=== PATIENT | male | born 1935 | race Two or more races ===

== ENCOUNTER 2025-01-20 08:41 | Emergency (ER) | payer OTHER, MEDICAID, SELFPAY ==
[2025-01-20 08:49] VITALS: BP 152/68; PULSE 85; RESP 17; TEMP 36.8; O2SAT 95
--- NOTE | 2025-01-20 08:55 | XR_ITS ---
Examination: AP lateral chest 2 views TECHNIQUE: Sitting AP lateral chest 2 views Date and time: January 20, 2025, 0914 hours INDICATIONS: Coughing chest pain today. FINDINGS: Bibasilar pneumonia. Normal heart size The osseous structures are intact IMPRESSION: Bibasilar pneumonia
--- NOTE | 2025-01-20 08:55 | XR_ITS ---
Examination: Venous duplex lower extremity sonogram, bilateral. Date and time of exam: January 20, 2025 0930 hours Swelling in the feet this week bilateral Technique: Multiple sonographic images of the deep venous system have been obtained. B-mode/2-D grayscale imaging of vascular structures and Doppler spectral analysis (waveforms) and color performed Both legs are examined. Findings: Deep venous systems do not demonstrate abnormal echogenicity. All visualized deep veins exhibit compressibility. All visualized deep veins exhibit augmentation. Impression: Negative for deep vein thrombosis
--- NOTE | 2025-01-20 08:56 | PD.EDRME ---
Rapid Medical Screening Exam RME Arrival date/time: 01/20/25 08:41 89-year-old male with history of hypertension, CAD, hypercholesterolemia presents to the emergency department today for complaints of bilateral lower extremity swelling Chief Complaint: General Adult/Misc Complain Vital signs: Vital Signs Temperature 98.3 F 01/20/25 08:49 Pulse Rate 85 01/20/25 08:49 Respiratory Rate 17 01/20/25 08:49 Blood Pressure 152/68 H 01/20/25 08:49 Pulse Oximetry (%) 95 01/20/25 08:49 Oxygen Delivery Method Room Air 01/20/25 08:49
[2025-01-20 09:30] LABS: Basophils # (Auto) 0.1 Thou/mm3 (0.0-0.2); Basophils % (Auto) 1 % (0-2.5); Eosinophils # (Auto) 0.3 Thou/mm3 (0.0-0.5); Eosinophils % (Auto) 4 % (0-10); Hematocrit 38.2 % (41.0-53.0); Hemoglobin 12.9 g/dL (13.5-16.0); Immature Granulocytes Auto 0.13 Thou/mm3 (0.00-0.00); Lymphocytes # (Auto) 1.5 Thou/mm3 (1.0-4.8); Lymphocytes % (Auto) 19 % (10-50); Mean Corpuscular HGB Conc 33.8 g/dl (31.0-37.0); Mean Corpuscular Hemoglobin 31.5 pg (25.0-35.0); Mean Corpuscular Volume 93 fL (80-100); Monocytes # (Auto) 0.5 Thou/mm3 (0.0-0.8); Monocytes % (Auto) 7 % (0-12); Neutrophils # (Auto) 5.4 Thou/mm3 (1.8-7.7); Neutrophils % (Auto) 67 % (37-80); Nucleated Red Blood Cell # 0.00 Thou/mm3 (0.00-0.00); Nucleated Red Blood Cell % 0 /100 WBC (0); Platelet Count 170 Thou/mm3 (140-440); RDW Standard Deviation 47.6 fL (35.1-43.9); Red Blood Count 4.10 Miln/mm3 (4.50-5.90); White Blood Count 8.0 Thou/mm3 (3.8-10.6)
[2025-01-20 09:38] LABS: INR 1.0 (0.9-1.3); Partial Thromboplastin Time 21.4 Seconds (22.0-36.0); Prothrombin Time 10.6 Seconds (9.0-12.2)
[2025-01-20 09:42] LABS: Alanine Aminotransferase 12 U/L (10-49); Albumin, Serum 4.6 gm/dL (3.4-4.8); Albumin/Globulin Ratio 1.4 (1.2-2.2); Alkaline Phosphatase 91 U/L (46-116); Anion Gap 11 (7-16); Aspartate Amino Transferase 21 U/L (0-34); BUN/Creatinine Ratio 7 Ratio (12-20); Bilirubin,Total 0.5 mg/dL (0.3-1.2); Blood Urea Nitrogen 9 mg/dL (9-23); Calcium 9.7 mg/dL (8.3-10.6); Calcium (Corrected) 9.7 mg/dL (8.5-10.1); Carbon Dioxide 23.3 mMol/L (20.0-31.0); Chloride 101 mMol/L (98-107); Creatinine (Component) 1.3 mg/dL (0.6-1.3); Globulin 3.4 gm/dL (2.3-3.5); Glucose 207 mg/dL (74-106); Magnesium 1.8 mg/dL (1.6-2.6); Osmolality,Calculated 274 (275-295); Potassium 4.3 mMol/L (3.4-5.1); Sodium 135 mMol/L (136-145); Total Protein 8.0 gm/dL (5.7-8.2); eGFR 53 See Note
[2025-01-20 10:00] LABS: B-Type Natriuretic Peptide 24 pg/mL (0-100)
--- NOTE | 2025-01-20 11:26 | PD.EDADULT ---
ED General RME/HPI General Chief complaint: General Adult/Misc Complain Stated complaint: BILAT LEG SWELLING, FLUID IN ABD Time Seen by Provider: 01/20/25 09:48 Arrival date/time: 01/20/25 08:41 RME / HPI RME / HPI narrative: 89-year-old male with history of hypertension, CAD, hypercholesterolemia presents to the emergency department today for complaints of bilateral lower extremity swelling. This been ongoing for several weeks. Patient also complaining of cough, for the last few days, denies any fever denies any shortness of breath denies any other complaints no medication was taken prior to ER visit. Related Data Home Medications ?Medication ?Instructions ?Recorded ?Confirmed atorvastatin 20 mg tablet (Lipitor) 40 mg PO HS #0 tabs 07/04/14 08/01/23 carvedilol 6.25 mg tablet (Coreg) 6.25 mg PO BID #0 tabs 07/04/14 08/01/23 clopidogrel 75 mg tablet (Plavix) 75 mg PO QDAY #0 tabs 07/04/14 08/01/23 amlodipine 10 mg tablet (Norvasc) 10 mg PO QDAY #0 tabs 05/31/16 08/01/23 aspirin 81 mg tablet,delayed 81 mg PO QPM 07/03/19 08/01/23 release losartan 50 mg tablet 50 mg PO QAM 08/01/23 08/01/23 metformin 750 mg tablet,extended 750 mg PO QPM 08/01/23 08/01/23 release 24 hr Previous Rx's ?Medication ?Instructions ?Recorded amoxicillin 875 mg-potassium 1 tab PO BID #14 tabs 01/20/25 clavulanate 125 mg tablet furosemide 20 mg tablet (Lasix) 20 mg PO QAM #14 tabs 01/20/25 potassium chloride 20 mEq oral 20 meq PO QDAY #14 ea 01/20/25 packet Allergies Allergy/AdvReac Type Severity Reaction Status Date / Time No Known Allergies Allergy Verified 08/01/23 14:58 Review of Systems Review of Systems Narrative Review of Systems: Review of system reviewed and within normal limits except mentioned in HPI ED Exam Narrative Physical exam: VITAL SIGNS: Reviewed. GENERAL APPEARANCE: Alert and interactive, follows commands, no acute distress, HEAD AND FACE: Non-traumatic. ENT: PERRL, pink conjunctivitis, eyelid no trauma, Mucous membrane moist. NECK: Supple, nontender, no nuchal rigidity. CHEST: No tenderness, no crepitus, no paradoxical movement, no retractions. LUNGS: Clear, well ventilated, symmetric, no rales, no wheezing, no ronchi, no stridor, good breath sounds bilaterally. HEART: Regular rate, regular rhythm, no murmur, no gallops. ABDOMEN: Soft, positive bowel sounds, nondistended, no guarding, nontender, no rebound, no masses, RECTAL: Deferred. GENITAL: Deferred. NEUROLOGICAL: Gross motor function intact sensory function intact, Appropriate for age. MUSCULOSKELETAL: low back nontender, full range of motion. EXTREMITIES:+ Bilateral lower extremity swelling, +1, no redness noted nontender, full range of motion. SKIN: Color pink, dry, no rash, no lacerations, no abrasions, no contusions. LYMPHATICS: Deferred. Course Quality Measures none Orders Category Date Time Status US venous doppler LE BI Stat Exams 01/20/25 08:55 Completed XR chest 2V Stat Exams 01/20/25 08:55 Completed B-Type Natriuretic Peptide Stat Lab 01/20/25 09:11 Completed CBC Stat Lab 01/20/25 09:11 Completed Comprehensive Metabolic Panel Stat Lab 01/20/25 09:11 Completed Magnesium Stat Lab 01/20/25 09:11 Completed Partial Thromboplastin Time Stat Lab 01/20/25 09:11 Completed Prothrombin Time with INR Stat Lab 01/20/25 09:11 Completed Vital Signs Vital signs: Vital Signs Temperature 98.3 F 01/20/25 08:49 Pulse Rate 85 01/20/25 08:49 Respiratory Rate 17 01/20/25 08:49 Blood Pressure 152/68 H 01/20/25 08:49 Pulse Oximetry (%) 95 01/20/25 08:49 Oxygen Delivery Method Room Air 01/20/25 08:49 Discharge Plan Plan Patient Disposition: HOME (Self Care) Discharge Disposition comment: stable Prescriptions/Referrals Prescriptions/Med Rec: New furosemide [Lasix] 20 mg tablet 20 mg PO QAM Qty: 14 0RF potassium chloride 20 mEq packet 20 meq PO QDAY Qty: 14 0RF amoxicillin-pot clavulanate 875-125 mg tablet 1 tab PO BID Qty: 14 0RF No Action carvedilol [Coreg] 6.25 MG tablet 6.25 mg PO BID Qty: 0 atorvastatin [Lipitor] 20 MG tablet 40 mg PO HS Qty: 0 clopidogrel [Plavix] 75 MG tablet 75 mg PO QDAY Qty: 0 amlodipine [Norvasc] 10 MG tablet 10 mg PO QDAY Qty: 0 aspirin 81 mg Tablet,Delayed Release (Dr/Ec) 81 mg PO QPM losartan 50 mg tablet 50 mg PO QAM Patient Comments: SALLY JUAREZA TODOS LOS D FOR 60 DAYS metformin 750 mg tablet extended release 24 hr 750 mg PO QPM Referrals: Jillian Galo MD [Primary Care Provider] - In 1 week Problem List Clinical Impression: PNA (pneumonia), Leg swelling Patient/Caregiver Discharge Instructions Discharge Activity: activity as tolerated Education Materials: ED Pneumonia (Adult) Additional Instructions: Thank you for the opportunity for serving you today. You are stable for discharged . You are advised to: Follow-up with your PCP in 1 to 2 days Return to ED for worsening of symptoms Take medication as prescribed Print Language: Peruvian Stand Alone Forms: [employer] Award Info., Patient Portal Info Letter PA/MARKETING BUSINESS ANALYST Supervising Physician PA/FELICITAS Supervising Physician: Dr Ingram MDM Narrative MDM hospital course (for use when minimal MDM required): 89-year-old male with history of hypertension, CAD, hypercholesterolemia presents to the emergency department today for complaints of bilateral lower extremity swelling. This been ongoing for several weeks. Patient also complaining of cough, for the last few days, denies any fever denies any shortness of breath denies any other complaints no medication was taken prior to ER visit. Laboratory workup UNREMARKABLE no leukocytosis noted. Chest x-ray showed pneumonia bilateral. Creatinine is normal. Ultrasound bilateral lower extremities negative for DVT. Patient will be sent home on Lasix potassium and Augmentin for pneumonia. Patient is stable for discharge home satting 95% on room air patient is ambulatory Patient appears nontoxic and hemodynamically stable .Decision to discharge the patient. The patient/family was given an opportunity to ask questions and understood their discharge instructions. Discharge instructions specifically included follow up provider and time frame, current and/or new medications and possible side effects, indications for sooner follow up or return to the emergency department, and the expected course of current diagnosis. Patient reports feeling better as well and giving evidence of significant clinical improvement, I believe patient is now a candidate for discharge. Diagnosis Differential Diagnosis ED Complaint MDM: Cough, shortness of breath, congestive heart failure, pneumonia, DVT, leg s Diagnoses ruled out and/or further discussions: Leg swelling, pneumonia
== END 2025-01-20 12:22 | disposition home or self-care (01) ==
PROVIDERS: Nurse Practitioner Primary Care; Emergency Provider Family Medicine; PCP Obstetrics & Gynecology
DX: J18.9 Pneumonia, unspecified organism (principal); M79.89 Other specified soft tissue disorders
CPT/HCPCS: 36415; 71046; 80053; 83735; 83880; 85025; 85610; 85730; 93970; 99283

== ENCOUNTER 2025-03-17 14:25 | Emergency (ER) | payer OTHER, SELFPAY ==
[2025-03-17 14:26] VITALS: BMI 25.0
[2025-03-17 15:00] VITALS: BP 152/77; PULSE 89; RESP 20; TEMP 37.2; O2SAT 96
--- NOTE | 2025-03-17 15:09 | XR_ITS ---
Examination: CT brain head without contrast. 2-D sagittal coronal reconstructions Date and time of exam: March 17, 2025, 1631 hours, comparison October 04, 2023 INDICATIONS: Onset headaches and generalized body weakness today CTDI: vol (mGy): 49.2 DLP: (mGycm): 992 Technique: Multiple CT axial sections of the brain have been obtained, 5 mm slice thickness. Contrast has not been administered. 2-D sagittal, coronal reconstructions have been obtained Low dose protocols were performed. One or more of the following dose reduction techniques were used; automated exposure control, adjustment of the mA and/or KV according to patient size, use of iterative reconstruction technique. Findings: No significant ventricular enlargement. Small old infarct left basal ganglia Intra-axial or extra-axial hemorrhage density is not seen. No mass effect or midline shift Basal cisterns are not remarkable. Fourth ventricle is midline. Cranial vault intact. Impression: Negative for acute hemorrhage, mass effect or midline shift As clinically warranted, brain MRI follow-up would best assess for early acute ischemic change
--- NOTE | 2025-03-17 15:10 | EKG_ITS ---
[facility] Test Date: 2025-03-17 Pat Name: WESLEY CABRERA Department: Room: - Gender: Male Senior Core Java Developer: : [id number] Requested By: Shahab Marin Order Number: [id number] Reading MD: Shahab Marin Measurements Intervals [place] Rate: 92 P: 39 NC: 162 QRS: 255 QRSD: 156 T: 17 QT: 396 QTc: 490 Interpretive Statements SINUS RHYTHM INDETERMINATE AXIS RIGHT BUNDLE BRANCH BLOCK [120+ ms QRS DURATION, UPRIGHT V1, 40+ ms S IN I/aVL/V4/V5/V6] Compared to ECG 08/02/2023 16:23:23 Sinus tachycardia no longer present Left posterior fascicular block no longer present /store/S0/[id number].pdf
--- NOTE | 2025-03-17 15:11 | XR_ITS ---
EXAMINATION: AP chest single view TECHNIQUE: Sitting portable AP chest single view Date and time: March 17, 2025, 1528 hours, comparison 01/20/2025 INDICATIONS: Ground-level fall 6 days ago followed by chest pain shortness of breath weakness FINDINGS: Normal heart size No pneumothorax Atelectasis versus mild pneumonia at the lung bases Clavicles ribs appear intact IMPRESSION: Atelectasis versus mild pneumonia at the lung bases
--- NOTE | 2025-03-17 15:13 | PD.EDRME ---
Rapid Medical Screening Exam RME Arrival date/time: 03/17/25 14:25 Chief Complaint: Weakness Vital signs: Vital Signs Temperature 98.9 F 03/17/25 15:00 Pulse Rate 89 03/17/25 15:00 Respiratory Rate 20 03/17/25 15:00 Blood Pressure 152/77 H 03/17/25 15:00 Pulse Oximetry (%) 96 03/17/25 15:00 Oxygen Delivery Method Room Air 03/17/25 15:00 RME Narrative: 89-year-old male presents to the ER complaining of generalized weakness x 6 days. I briefly performed a screening evaluation to initiate work-up and expedite care. Complete history, physical exam, and plan of care is deferred to the provider in the main ED. Exam: Head: Normocephalic, atraumatic. Respiratory: Normal effort. No respiratory distress or accessory muscle use. Neuro: Speech normal. Skin: Warm, dry, normal color. Psych: Pleasant. Normal affect. Cooperative. Clinical Impression: Generalized weakness
[2025-03-17 16:14] LABS: Collection Type, Urine Voided; Squamous Epithelial Cell,Urine 0 /hpf (0-5)
[2025-03-17 16:21] LABS: Basophils # (Auto) 0.1 Thou/mm3 (0.0-0.2); Basophils % (Auto) 1 % (0-2.5); Eosinophils # (Auto) 0.4 Thou/mm3 (0.0-0.5); Eosinophils % (Auto) 3 % (0-10); Hematocrit 37.5 % (41.0-53.0); Hemoglobin 12.6 g/dL (13.5-16.0); Immature Granulocytes Auto 0.11 Thou/mm3 (0.00-0.00); Lymphocytes # (Auto) 1.6 Thou/mm3 (1.0-4.8); Lymphocytes % (Auto) 11 % (10-50); Mean Corpuscular HGB Conc 33.6 g/dl (31.0-37.0); Mean Corpuscular Hemoglobin 31.6 pg (25.0-35.0); Mean Corpuscular Volume 94 fL (80-100); Monocytes # (Auto) 1.3 Thou/mm3 (0.0-0.8); Monocytes % (Auto) 9 % (0-12); Neutrophils # (Auto) 11.0 Thou/mm3 (1.8-7.7); Neutrophils % (Auto) 76 % (37-80); Nucleated Red Blood Cell # 0.00 Thou/mm3 (0.00-0.00); Nucleated Red Blood Cell % 0 /100 WBC (0); Platelet Count 220 Thou/mm3 (140-440); RDW Standard Deviation 45.6 fL (35.1-43.9); Red Blood Count 3.99 Miln/mm3 (4.50-5.90); White Blood Count 14.4 Thou/mm3 (3.8-10.6)
[2025-03-17 16:34] LABS: Bilirubin,Urine Negative (Negative); Blood,Urine Negative (Negative); Clarity,Urine Clear (Clear/Hazy); Color,Urine Colorless (Lt Yel-Yel); Culture Indicated,Urine Not Indicated; Glucose, Urine Negative (Negative); Ketones,Urine Negative (Negative); Leukocyte Esterase,Urine Negative (Negative); Nitrite,Urine Negative (Negative); PH,Urine 6.0 (5.0-7.0); Protein,Urine Negative (Neg - Trace); RBC,Urine < 1 /hpf (0-3); Specific Gravity,Urine 1.011 (1.001-1.035); Urobilinogen,Urine Negative mg/dL (0.0-1.0); WBC,Urine < 1 /hpf (0-5)
[2025-03-17 16:35] LABS: INR 1.0 (0.9-1.3); Prothrombin Time 10.5 Seconds (9.0-12.2)
[2025-03-17 16:44] LABS: Alanine Aminotransferase 13 U/L (10-49); Albumin, Serum 5.1 gm/dL (3.4-4.8); Albumin/Globulin Ratio 1.5 (1.2-2.2); Alkaline Phosphatase 98 U/L (46-116); Anion Gap 9 (7-16); Aspartate Amino Transferase 20 U/L (0-34); BUN/Creatinine Ratio 17 Ratio (12-20); Bilirubin,Total 0.8 mg/dL (0.3-1.2); Blood Urea Nitrogen 27 mg/dL (9-23); Calcium 9.0 mg/dL (8.3-10.6); Calcium (Corrected) 9.0 mg/dL (8.5-10.1); Carbon Dioxide 27.6 mMol/L (20.0-31.0); Chloride 97 mMol/L (98-107); Creatinine (Component) 1.6 mg/dL (0.6-1.3); Estimated Creatinine Clearance 27.2 mL/min (>60); Globulin 3.4 gm/dL (2.3-3.5); Glucose 124 mg/dL (74-106); Lipase 56 U/L (12-53); Magnesium 2.4 mg/dL (1.6-2.6); Osmolality,Calculated 274 (275-295); Potassium 3.7 mMol/L (3.4-5.1); Sodium 134 mMol/L (136-145); Thyroid Stimulating Hormone 8.75 uIU/mL (0.55-4.78); Total Protein 8.5 gm/dL (5.7-8.2); Troponin I < 0.020 ng/mL (0.0-0.045); eGFR 41 See Note
--- NOTE | 2025-03-17 18:00 | PD.EDWEAK ---
ED Weakness RME/HPI General Chief complaint: Weakness Stated complaint: WEAKNESS Time Seen by Provider: 03/17/25 18:13 Arrival date/time: 03/17/25 14:25 RME / HPI RME / HPI Narrative: cc: decrease appetite Patient is an 89-year-old male with a past medical history of hypertension, hyperlipidemia, diabetes mellitus type 2, history of CVA, CKD and CAD status post PCI who presented to the emergency room via private vehicle with a chief complaint of generalized weakness and decreased appetite over the past 2 to 3 days. Patient is a poor historian and hard of hearing. Per family at bedside patient had a recent fall approximately 2 to 3 days ago and concern for any head bleed as patient is on aspirin and Plavix for the past 8 years since history of CVA. Decreased oral intake over 2 to 3 days. Denied fevers at home. Denied constipation. No episodes of emesis. Denied melena or hematochezia. Impression: Generalized weakness Related Data Home Medications ?Medication ?Instructions ?Recorded ?Confirmed atorvastatin 20 mg tablet (Lipitor) 40 mg PO HS #0 tabs 07/04/14 08/01/23 carvedilol 6.25 mg tablet (Coreg) 6.25 mg PO BID #0 tabs 07/04/14 08/01/23 clopidogrel 75 mg tablet (Plavix) 75 mg PO QDAY #0 tabs 07/04/14 08/01/23 amlodipine 10 mg tablet (Norvasc) 10 mg PO QDAY #0 tabs 05/31/16 08/01/23 aspirin 81 mg tablet,delayed 81 mg PO QPM 07/03/19 08/01/23 release losartan 50 mg tablet 50 mg PO QAM 08/01/23 08/01/23 Held on 03/17/25. Instructions: Resume on 03/24/25. Please hold Losartan until you see your primary doctor and have a repeat renal function lab metformin 750 mg tablet,extended 750 mg PO QPM 08/01/23 08/01/23 release 24 hr Previous Rx's ?Medication ?Instructions ?Recorded furosemide 20 mg tablet (Lasix) 20 mg PO QAM #14 tabs 01/20/25 potassium chloride 20 mEq oral 20 meq PO QDAY #14 ea 01/20/25 packet amoxicillin 500 mg-potassium 1 tab PO BID pneumonia 5 days #10 03/17/25 clavulanate 125 mg tablet tabs nystatin 100,000 unit/mL oral 1 ml PO QDAY 7 days #7 mL 03/17/25 suspension Allergies Allergy/AdvReac Type Severity Reaction Status Date / Time No Known Allergies Allergy Verified 03/17/25 14:30 Review of Systems Review of Systems Narrative Review of Systems: General Appearance: Alert & Oriented X0-hard of hearing, thin male who is lying in bed in no acute distress. HEENT: Skull symmetrical and atraumatic. Conjunctivae pale pink and moist. Pupils equal, round, reactive to light and accommodation (PERRL). External ear without lesion or discharge. Straight, nares patient, mucosa pink, no discharge. Cardio: Normal Rate and Rhythm with S1 and S2 heart sounds. No murmurs or extra heart sounds auscultated. No bruits on carotid auscultation. No peripheral edema or cyanosis. Lungs: Symmetric with good expansion. Chest and back non-tender. Breath sounds vesicular without crackles, wheezing or rhonchi Abdomen: Non-tender, mild distended, Non-tympanic abdomen, Normal Reactive Bowel Sounds Neuro: Yes Alert, No cooperative, oriented to person, place, and time. CN grossly intact. Upper motor strength 5/5 and Lower motor strength 4/5. Sensation intact. Course Course Course Narrative: CBC CMP UA Chest xray Flu COVID Quality Measures none Orders Category Date Time Status Bedside COVID-19 Antigen Test NOW Care 03/17/25 18:39 Completed EKG (ED ONLY) *Do not use* NOW Care 03/17/25 15:10 Completed Saline [Insert IV] NOW Care 03/17/25 18:[address] head/brain wo con Stat Exams 03/17/25 15:09 Completed EKG (ED Only) Stat Exams 03/17/25 15:10 Draft XR chest 1V Stat Exams 03/17/25 15:11 Completed BNP [B-Type Natriuretic Peptide] Stat Lab 03/17/25 16:10 Completed CBC Stat Lab 03/17/25 16:10 Completed CMP [Comprehensive Metabolic Panel] Stat Lab 03/17/25 16:10 Completed Free T3 Stat Lab 03/17/25 Ordered Free T4 (Free Thyroxine) Stat Lab 03/17/25 16:10 Completed INR [Prothrombin Time with INR] Stat Lab 03/17/25 16:10 Completed Influenza A & B Rapid Panel Stat Lab 03/17/25 19:13 Completed Lipase Stat Lab 03/17/25 16:10 Completed Magnesium Stat Lab 03/17/25 16:10 Completed TSH [Thyroid Stimulating Hormone] Stat Lab 03/17/25 16:10 Completed Troponin I Stat Lab 03/17/25 16:10 Completed UA, C/S IF [Urinalysis, C/S if Indicated] Stat Lab 03/17/25 16:10 Completed Doxycycline Inj [Vibramycin Inj] 100 mg Med 03/17/25 19:15 Discontinued Sodium Chloride 0.9% [Ns] 100 ml IV BID Ringers Lactated 1000 ml [Lactated Ringers] 1,000 ml Med 03/17/25 18:30 Discontinued IV 80 mls/hr cefTRIAXone/D5w 1gm IV premix [Rocephin/D5w 1gm IV Med 03/17/25 19:00 Discontinued premix] 1 gm in 50 ml IV QDAY Vital Signs Vital signs: Vital Signs Temperature 98.9 F 03/17/25 15:00 Pulse Rate 89 03/17/25 15:00 Respiratory Rate 20 03/17/25 15:00 Blood Pressure 152/77 H 03/17/25 15:00 Pulse Oximetry (%) 96 03/17/25 15:00 Oxygen Delivery Method Room Air 03/17/25 15:00 Weakness Patient data External records reviewed:: [facility] previous records Clinical information provided by:: patient Social determinants that could affect healthcare access:: none Patient has the following chronic illnesses:: HTN HLD and diabetes mellitus type 2 CAD s/p PCI hx of CVA CKD How is presenting disease/condition affected by chronic disease/condition?: exacerbated by (co-morbidities ) Evaluation data The following diagnostics were reviewed and interpreted by me:: lab results and radiology exam(s) Lab and/or radiology exams considered but not ordered:: None Interpretation Summary: Patient is an 89-year-old male with a past medical history of hypertension, hyperlipidemia, diabetes mellitus type 2, history of CVA, CKD and CAD status post PCI who presented with a chief complaint of decreased appetite and generalized weakness found to have leukocytosis on WBC noted at 14.4, history of anemia, GERALDINE likely secondary to prerenal given decreased oral intake. UA negative. EKG negative for ST elevations no active AK. Chest x-ray noted actively sepsis versus mild pneumonia. CT head showing no acute hemorrhage and small old infarct the left basal ganglia. #Pneumonia #Leukocytosis #Oral thrush #GERALDINE - The patient's plan was discussed with attending Dr. Alvina Ingram MD PGY2 Internal Medicine Medications / Prescriptions Medications or Prescriptions considered but not ordered:: none Medication administrations:: Medication Administration History Discontinued Medications Lactated Ringer's (Lactated Ringers) 1,000 mls @ 80 mls/hr IV .[id number] ONE Stop: 03/18/25 06:59 Last Admin: 03/17/25 19:16 Dose: Not Given Documented By: CB Non-Admin Reason: Cancelled by Provider Ceftriaxone Sodium/Dextrose (Rocephin/D5w 1gm Iv Premix) 1 gm in 50 mls @ 100 mls/hr IV QDAY JOEY Stop: 03/24/25 18:59 Last Infusion: 03/17/25 19:46 Dose: Infused Documented By: Admin: 03/17/25 19:09 Dose: 100 mls/hr Documented By: MARTY Doxycycline Hyclate 100 mg/ (Sodium Chloride) 100 mls @ 200 mls/hr IV BID JOEY Stop: 03/24/25 19:14 Last Infusion: 03/17/25 19:47 Dose: Infused Documented By: Admin: 03/17/25 19:20 Dose: 200 mls/hr Documented By: MARTY same as above Consultations Consultation(s) initiated? (list below): No Diagnosis Weakness Differential Diagnosis: acute myocardial infarction, hypothyroidism, dehydration and other (Pneumonia ) Most likely diagnosis given after review of the tests above:: Patient is an 89-year-old male with a past medical history of hypertension, hyperlipidemia, diabetes mellitus type 2, history of CVA, CKD and CAD status post PCI who presented with a chief complaint of decreased appetite and generalized weakness found to have leukocytosis on WBC noted at 14.4, history of anemia, GERALDINE likely secondary to prerenal given decreased oral intake. UA negative. EKG negative for ST elevations no active AK. Chest x-ray noted actively sepsis versus mild pneumonia. CT head showing no acute hemorrhage and small old infarct the left basal ganglia. Elevated TSH but Free T4 within normal range. #Pneumonia #Leukocytosis #Oral thrush #GERALDINE - The patient's plan was discussed with attending Dr. Alvina Ingram MD PGY2 Internal Medicine Admission Indicated Admission indicated?: not indicated Admission Request Was there a request for admission?: No Disposition Plan Disposition Plan: Discharge Discharge Attestation Discharge Attestation: The patient and all family members were given an opportunity to ask questions and understood the discharge instructions. Discharge instructions specifically effects, indications for sooner follow up or return to the emergency department, and the expected course of current diagnosis. Patient condition: Stable Discharge Plan Plan Patient Disposition: HOME (Self Care) Patient condition on transfer: Stable Health Concerns: Discharge instructions from Dr. Ingram: -After evaluation, there is no very serious conditions. -Such as stroke or heart attack or broken bone. -But you have pneumonia. -Fortunately, you demonstrated standing and walking on your own in front of your son and us. -Amoxicillin-clavulanate 1 tablet twice daily for the next 5 days for pneumonia. -Please take nystatin orally, as swish and swallow for oral infection of oral thrush for the next 7 days, please follow up with your primary doctor. -Please HOLD Losartan, your blood pressure medication, until you see your primary doctors does a repeat renal panel for your kidneys. -please continue all your medication as prescribed by your primary doctor. -You are taking Plavix, if you experience any bleed that does not stop or fall, please seek immediate medical attention. -Please walk with a walker and with help for ambulation. -Please encourage oral intake of food and water as were dehydrated. For good hydration, increase oral fluid and maintain clear urine. If dark or yellow, increase oral fluid. -Please follow up with your primary care provider within one week of discharge. Ask to review all test results and official radiology reports, to make sure you receive all necessary follow-ups and monitoring. -If your symptoms worsen, please seek immediate medical attention and return to your nearest emergency room. -If you do not have a primary care provider, you may follow up at the [facility] at [address], [place] [address], . Instrucciones de robinson del Dr. Ingram: -Tras la evaluaci?n, no se detectaron afecciones graves. Alyssa un derrame cerebral, un ataque card?aco o hu fractura ?sea. Sin embargo, usted tiene neumon?a. -Afortunadamente, usted demostr? poder ponerse de pie y caminar por s? mismo frente a moreno hijo y a nosotros. -Amoxicilina-clavulanato: 1 tableta dos veces al d?a prasanna los pr?ximos 5 d?as para la neumon?a. -Por favor, tome nistatina por v?a oral, enjuag?ndose y trag?ndola, para la candidiasis oral prasanna los pr?ximos 7 d?as. Consulte con moreno m?dico de cabecera. -Por favor, suspenda el Losart?n, moreno medicamento para la presi?n arterial, hasta que moreno m?dico de cabecera le realice un an?lisis de funci?n renal. -Por favor, contin?e con todos jean marie medicamentos seg?n lo prescrito por moreno m?dico de cabecera. -Est? tomando Plavix. Si experimenta alg?n sangrado que no se detiene o disminuye, busque atenci?n m?dica de inmediato. -Por favor, camine con un andador y solicite ayuda para desplazarse. -Por favor, fomente la ingesta de alimentos y agua por v?a oral, ya que est? deshidratado. Para hu buena hidrataci?n, aumente la ingesta de l?quidos y mantenga la orina jeremiah. Si la orina es oscura o amarilla, aumente la ingesta de l?quidos. -Por favor, jessica un seguimiento con moreno m?dico de cabecera dentro de la semana posterior al robinson. Solicite revisar todos los resultados de las pruebas y los informes radiol?gicos oficiales para asegurarse de recibir todos los seguimientos y la monitorizaci?n necesarios. -Si jean marie s?ntomas empeoran, busque atenci?n m?dica de inmediato y acuda a la blanka de urgencias m?s cercana. -Si no tiene un m?dico de cabecera, puede hacer un seguimiento en el [facility] [facility] [facility] en [address], [address], [place] [address], tel?dana . Prescriptions/Referrals Prescriptions/Med Rec: New amoxicillin-pot clavulanate 500-125 mg tablet 1 tab PO BID 5 Days Qty: 10 0RF nystatin 100,000 unit/mL suspension 1 ml PO QDAY 7 Days Qty: 7 0RF Rx Instructions: swish and swallow for 7 days. Continued carvedilol [Coreg] 6.25 MG tablet 6.25 mg PO BID Qty: 0 atorvastatin [Lipitor] 20 MG tablet 40 mg PO HS Qty: 0 clopidogrel [Plavix] 75 MG tablet 75 mg PO QDAY Qty: 0 amlodipine [Norvasc] 10 MG tablet 10 mg PO QDAY Qty: 0 aspirin 81 mg Tablet,Delayed Release (Dr/Ec) 81 mg PO QPM metformin 750 mg tablet extended release 24 hr 750 mg PO QPM furosemide [Lasix] 20 mg tablet 20 mg PO QAM Qty: 14 0RF potassium chloride 20 mEq packet 20 meq PO QDAY Qty: 14 0RF Held losartan 50 mg tablet 50 mg PO QAM Hold Instructions: Resume on 03/24/25. Please hold Losartan until you see your primary doctor and have a repeat renal function lab Patient Comments: TOME HU TABLETA TODOS LOS D FOR 60 DAYS Discontinued amoxicillin-pot clavulanate 875-125 mg tablet 1 tab PO BID Qty: 14 0RF Referrals: Jillian Galo MD [Primary Care Provider] - In 1 week Problem List Clinical Impression: Pneumonia, Oral thrush Patient/Caregiver Discharge Instructions Education Materials: Katherine Infection: Thrush Print Language: German Stand Alone Forms: Yu Award Info., Patient Portal Info Letter
[2025-03-17 18:11] VITALS: BP 120/92; PULSE 86; RESP 20; TEMP 36.6; O2SAT 96
[2025-03-17 18:35] LABS: Free T4 (Free Thyroxine) 1.32 ng/dL (0.89-1.76)
[2025-03-17] MEDS: cefTRIAXone/D5w 1gm IV premix 1 GM/50 ML BAG IV (19:09)
[2025-03-17 19:12] LABS: B-Type Natriuretic Peptide < 20 pg/mL (0-100)
[2025-03-17 19:41] LABS: Influenza A Ag Negative; Influenza B Ag Negative
[2025-03-17 19:46] VITALS: BP 172/70; PULSE 76; RESP 18; TEMP 36.7; O2SAT 95
== END 2025-03-17 19:49 | disposition home or self-care (01) ==
PROVIDERS: Physician Assistant; Emergency Provider Emergency Medicine; PCP Obstetrics & Gynecology
DX: J18.9 Pneumonia, unspecified organism (principal); I12.9 Hypertensive chronic kidney disease with stage 1 through stage 4 chronic kidney disease, or unspecified chronic kidney disease; I25.10 Atherosclerotic heart disease of native coronary artery without angina pectoris; N17.9 Acute kidney failure, unspecified; N18.9 Chronic kidney disease, unspecified; B37.0 Candidal stomatitis; E11.22 Type 2 diabetes mellitus with diabetic chronic kidney disease; E78.5 Hyperlipidemia, unspecified; Z79.02 Long term (current) use of antithrombotics/antiplatelets
CPT/HCPCS: 36415; 70450; 71045; 80053; 81001; 83690; 83735; 83880; 84439; 84443; 84481; 84484; 85025; 85610; 87502; 87635; 93005; 96365; 99284; J0696; J3490; J7050; J7120